=== PATIENT | male | born 1975 | race Two or more races ===

== ENCOUNTER 2022-01-12 11:08 | Emergency (ER) | payer BC ==
[~2022-01-12] VITALS: Ht 170.2 cm; Wt 83.0 kg
--- NOTE | 2022-01-12 11:23 | NUR ---
BIBS C/O ABDOMINAL PAIN P/S 7/10 AND DIARRHEA X4DAYS. THE PATIENT IS ALERT AND ORIENTED X4. IN ROOM AIR AND DENIES SOB. RESPIRATION REGULAR AND UNLABORED. WILL CONTINUE TO MONITOR THE PATIENT.
--- NOTE | 2022-01-12 11:23 | NUR ---
DR MESSINA AT THE BEDSIDE
[2022-01-12] MEDS ORDERED: LOPE-195 PO (11:32)
[2022-01-12 11:39] VITALS: BP 132/90
--- NOTE | 2022-01-12 11:39 | NUR ---
Patient discharged to home in stable condition. Written and verbal after care instructions given. Patient verbalizes understanding of instruction.
== END 2022-01-12 11:39 | disposition home or self-care (01) ==
LOC: ER 11:17
DX: R19.7 Diarrhea, unspecified (principal); Z79.899 Other long term (current) drug therapy

== ENCOUNTER 2022-10-09 13:34 | Emergency (ER) | payer BC, MEDICAID ==
[~2022-10-09] VITALS: Ht 170.2 cm; Wt 81.6 kg
[~2022-10-09 13:34] MED LIST: LOPE-195 PO
--- NOTE | 2022-10-09 13:46 | NUR ---
C/O RIGHT SIDED ABDOMINAL PAIN X 6 DAYS. PT DENIES NAUSEA VOMITING. ADMITS TO "A LITTLE DIARRHEA".
--- NOTE | 2022-10-09 14:10 | NUR ---
AT BEDSIDE FOR EVAL.
--- NOTE | 2022-10-09 14:15 | NUR ---
URINE SAMPLE COLLECTED AND SENT TO LAB.
--- NOTE | 2022-10-09 14:16 | NUR ---
IV ACCESS ESTABLISHED. 18G RIGHT FOREARM. BLOOD DRAWN AND SENT TO LAB.
--- NOTE | 2022-10-09 15:07 | NUR ---
X-RAY TECH AT THE BEDSIDE
[2022-10-09 15:25] LABS: BASOPHILS % (AUTO) 0.7 % (0.0-2.0); HEMATOCRIT 44 % (39-51); LYMPHOCYTES # (AUTO) 2.5 K/uL (0.8-4.8); LYMPHOCYTES % (AUTO) 36.8 % (20.0-44.0); MEAN CORPUSCULAR HGB CONC 34 g/dl (31.0-36.0); MEAN CORPUSCULAR VOLUME 100 fL (80-96); MONOCYTES # (AUTO) 0.5 K/uL (0.1-1.30); MONOCYTES % (AUTO) 7.5 % (2.0-12.0); NEUTROPHILS # (AUTO) 3.6 K/uL (1.8-8.9); PLATELET COUNT (AUTO) 191 K/uL (150-450); RED BLOOD CELL COUNT(AUTO) 4.43 MIL/uL (4.5-6.0); WHITE BLOOD COUNT (AUTO) 6.9 K/uL (4.3-11.0)
[2022-10-09 15:39] LABS: BILIRUBIN,URINE NEGATIVE (NEGATIVE); COLOR,URINE YELLOW (YELLOW); LEUKOCYTE ESTERASE ,URINE NEGATIVE (NEGATIVE); NITRITE, URINE NEGATIVE (NEGATIVE); PROTEIN,URINE NEGATIVE (NEGATIVE); UGLUCOSE NEGATIVE (NEGATIVE)
[2022-10-09 15:45] LABS: CALCIUM, SERUM 8.8 mg/dL (8.5-10.1); CARBON DIOXIDE 25 mmol/L (21-32); CHLORIDE 107 mmol/L (98-107); CREATININE 1.1 mg/dL (0.6-1.3); GLUCOSE 96 mg/dL (74-106); SODIUM SERUM 142 mmol/L (136-145); UREA NITROGEN, BLOOD 12 mg/dL (7-18)
[2022-10-09 15:51] LABS: ALANINE AMINOTRANSFERASE 31 U/L (12-78); ALBUMIN 3.7 g/dL (3.4-5.0); ALKALINE PHOSPHATASE 80 U/L (46-116); ASPARTATE AMINOTRANSFERASE 23 U/L (15-37); BILIRUBIN,DIRECT 0.1 mg/dL (0.0-0.2); BILIRUBIN,TOTAL 0.7 mg/dL (0.2-1.0); LIPASE 210 U/L (73-393); TOTAL PROTEIN, SERUM 7.4 g/dL (6.4-8.2)
--- NOTE | 2022-10-09 16:04 | NUR ---
COVID ANTIGEN SWAB DONE AND SENT TO THE LAB
--- NOTE | 2022-10-09 16:52 | NUR ---
INFLUENZA SWAB DONE AND SENT TO THE LAB
[2022-10-09 16:59] VITALS: BP 131/76
--- NOTE | 2022-10-09 16:59 | NUR ---
IV removed. Catheter intact and site benign. Pressure and 4x4 applied to site. No bleeding noted.Patient discharged to home in stable condition. Written and verbal after care instructions given. Patient verbalizes understanding of instruction.
[2022-10-09 17:33] LABS: BACTERIA,URINE None seen /HPF (None Seen); RBC,URINE 0-2 /HPF (0-2); SQUAMOUS EPITHELIAL CELL,UR 0-2 /HPF (None Seen); WBC,URINE 0-2 /HPF (0-3)
== END 2022-10-09 17:00 | disposition home or self-care (01) ==
LOC: ER 13:40
DX: B34.9 Viral infection, unspecified (principal); R10.13 Epigastric pain; R05.9 Cough, unspecified; F17.200 Nicotine dependence, unspecified, uncomplicated; Z79.899 Other long term (current) drug therapy; Z20.822 Contact with and (suspected) exposure to COVID-19
CPT/HCPCS: 99285; 71045; 87426; 93005; 87804 ×2; 85025; 80048; 83690; 80076; 81001; 36415; 84484; C9803